=== PATIENT | female | born 1965 | race Caucasian/White ===

== ENCOUNTER 2018-08-04 03:04 | Emergency (ER) | payer OTHER ==
--- NOTE | 2018-08-04 03:21 | ED ---
Laceration/Wound HPI - HPI Summary HPI Summary: Patient is a 53 y/o F presenting to ED with complaints of laceration above the left eye/eyebrow. She states she was walking in her home looking at her feet, lifted her head up and subsequently walked into a door jamb. She denies any other injury and reports no LOC. Last tetanus was over ten years ago. Patient denies smoking tobacco, alcohol and substance usage. Hx of heart murmur reported. FMHx of HTN. On triage, pain is rated 1/10, nothing is noted to aggravate/alleviate Sx. Home medications and allergies are reviewed. - History of Current Complaint Stated Complaint: HEAD LAC PER PT Hx Obtained From: Patient Mechanism of Injury: Sharp/Blunt Trauma Onset/Duration: Sudden Onset, Still Present Aggravating: Nothing Alleviating: Nothing Onset Severity: Mild Current Severity: Mild Pain Intensity: 1 Pain Scale Used: 0-10 Numeric Associated Signs & Symptoms: Negative - Allergy/Home Medications Allergies/Adverse Reactions: Allergies Allergy/AdvReac Type Severity Reaction Status Date / Time No Known Allergies Allergy Verified 08/04/18 03:11 PMH/Surg Hx/FS Hx/Imm Hx Cardiovascular History: Reports: Other Cardiovascular Problems/Disorders - Hx of murmur Sensory History: Denies: Hx Legally Blind, Hx Deafness Opthamlomology History: Denies: Hx Legally Blind EENT History: Denies: Hx Deafness Infectious Disease History: No Infectious Disease History: Denies: Traveled Outside the [place] in Last 30 Days - Family History Known Family History: Positive: Hypertension - Social History Alcohol Use: None Substance Use Type: Reports: None Smoking Status (MU): Never Smoked Tobacco Review of Systems Skin: Other - POSITIVE - LACERATION ABOVE LEFT EYE/EYEBROW, NO OTHER INJURY Neurological: Other - NEGATIVE - LOC All Other Systems Reviewed And Are Negative: Yes Physical Exam - Summary Physical Exam Summary: Appearance: well appearing, no pain distress Skin: warm, dry, reflects adequate perfusion; 1 cm laceration above left eye/ eyebrow Head/face: normal Eyes: EOMI, VEENA ENT: mucous membranes moist Neck: supple, non-tender Respiratory: CTA, breath sounds present Cardiovascular: pulses symmetrical, occasionally irregular, otherwise normal Abdomen: non-tender, soft Bowel Sounds: present Musculoskeletal: normal, strength/ROM intact Neuro: normal, sensory motor intact, A&Ox3 Triage Information Reviewed: Yes Vital Signs On Initial Exam: Initial Vitals Temp Pulse Resp BP Pulse Ox 98.8 F 69 16 177/100 99 08/04/18 03:10 08/04/18 03:10 08/04/18 03:10 08/04/18 03:10 08/04/18 03:10 Vital Signs Reviewed: Yes Diagnostics - Vital Signs Vital Signs Temp Pulse Resp BP Pulse Ox 08/04/18 03:10 98.8 F 69 16 177/100 99 - Laboratory Lab Statement: Any lab studies that have been ordered have been reviewed, and results considered in the medical decision making process. Laceration Repair Course/Dx - Course Course Of Treatment: Patient with a tiny laceration that was derma bonded closed. Good cosmetic result. Tetanus updated here. - Clinical Impression Provider Diagnoses: Facial laceration Discharge - Sign-Out/Discharge Documenting (check all that apply): Patient Departure - discharge Patient Received Moderate/Deep Sedation with Procedure: No - Discharge Plan Condition: Improved Disposition: HOME Patient Education Materials: Skin Adhesive Care (ED) Referrals: Nallely Jensen MD [Primary Care Provider] - Additional Instructions: Do not submerge or put ointments or cream on the glue. You can use vitamin E after 5 days' time. Return with concern for infection, worse or other concerns. - Billing Disposition and Condition Condition: IMPROVED Disposition: Home - Attestation Statements Document Initiated by Elisa: Yes Documenting Scribe: JANELL GRIJALVA Provider For Whom Elisa is Documenting (Include Credential): CRISTIANO ELLIOTT MD Scribe Attestation: IJANELL, scribed for CRISTIANO ELLIOTT MD on 08/04/18 at 0442. Scribe Documentation Reviewed: Yes Provider Attestation: The documentation as recorded by the JANELL ontiveros accurately reflects the service I personally performed and the decisions made by me, CRISTIANO ELLIOTT MD Status of Scribe Document: Viewed
[2018-08-04] MEDS ORDERED: Tetan/Diph/Pertus SYR(Tdap)* 0.5 ML SYR(BOOSTRIX) use SYR IM ONE (03:24)
[2018-08-04 03:39] VITALS: BP 169/89
== END 2018-08-04 03:38 | disposition home or self-care (01) ==
LOC: ED 03:04
DX: S01.112A Laceration without foreign body of left eyelid and periocular area, initial encounter (principal); Z23 Encounter for immunization; I10 Essential (primary) hypertension; W22.8XXA Striking against or struck by other objects, initial encounter
CPT/HCPCS: 90471; 90715; 99284